=== PATIENT | female | born 2000 | race African-American/Black ===

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

== ENCOUNTER 2021-09-13 20:04 | Inpatient (IN) | payer MEDICARE, MEDICAID ==
[2021-09-13 21:35] LABS: #Lymphocytes 2.6 thou/uL (1.20-3.40); #Monocytes 0.5 thou/uL (0.11-0.59); #Neutrophils 6.7 thou/uL (1.40-6.50); %Basophils 0.2 % (0.0-1.0); %Eosinophils 0.2 % (0.0-10.0); %Lymphocytes 26.7 % (21.0-51.0); %Monocytes 4.7 % (0.0-10.0); %Neutrophils 68.2 % (42.0-75.0); Hemoglobin 7.8 g/dL (12.0-16.0); Mean Corpuscular HGB CONC 32.3 g/dL (32.0-36.0); Mean Corpuscular Hemoglobin 28.8 pg (27.0-31.0); Mean Corpuscular Volume 89.2 fL (78.0-98.0); Mean Platelet Volume 6.9 fL (7.4-10.4); Platelet Count 253 thou/uL (130-400); Red Blood Cell (RBC) Count 2.72 mill/uL (4.20-5.40); White Blood Cell (WBC) Count 9.8 thou/uL (4.8-10.8)
[2021-09-13 21:36] LABS: Bacteria/HPF 1+ HPF (None Seen); Bilirubin Negative (Negative); Blood, Urine 3+ (Negative); Clarity Clear (Clear); Glucose, Urine (Dipstick) Normal (Negative); Ketone, Urine Negative (Negative); Leukocyte 500 Leu/uL (Negative); Nitrite Negative (Negative); Pregnancy Test - Urine (BHCG) Negative (Negative); Pregu Control Background? CLEAR/WHITE (CLR/WHITE); Pregu Control Bar Appear? YES (CONTROL BAR); Protein, Urine (Dipstick) 20 mg/dL (Neg-Trace); RBC/HPF 0-3 HPF (0-3); Specific Gravity 1.008 (1.002-1.036); Specific Gravity, Urine 1.008 (1.002-1.036); Squamous Epithelial 0-3 HPF (0-3); Urobilinogen Normal mg/dL (Less than 2)
[2021-09-13 21:42] LABS: Amphetamine Not Detected (NotDetected); Barbiturates Screen Not Detected (NotDetected); Benzodiazepine Screen Not Detected (NotDetected); Cocaine Metabolite Screen Not Detected (NotDetected); Methadone Not Detected (NotDetected); Methamphetamine Not Detected (NotDetected); Opiate Screen Not Detected (NotDetected); Oxycodone Screen Not Detected (NotDetected); Phencyclidine (PCP) Not Detected (NotDetected); THC/Cannabinoid Screen Not Detected (NotDetected); Tricyclic Screen Not Detected (NotDetected)
[2021-09-13 22:03] LABS: ALT (SGPT) 19 U/L (8-55); AST (SGOT) 23 U/L (5-34); Albumin 3.9 g/dL (3.5-5.0); Alkaline Phosphatase 90 U/L (40-110); Anion Gap 11 mmol/L (10-20); BUN (Urea Nitrogen) 4 mg/dL (7.0-18.7); Calc. Creatinine Clearance 0 mL/min (70-130); Carbon Dioxide 28 mmol/L (22-29); Chloride 106 mmol/L (98-107); Globulin 2.6 g/dL (2.4-3.5); Glucose 93 mg/dL (70-105); Protein, Total 6.5 g/dL (6.0-8.3); Sodium 142 mmol/L (136-145)
[2021-09-13 22:04] LABS: Acetaminophen Less than 10.0 mcg/mL (10.0-30.0); Alcohol Less than 10 mg/dL (Less than 10); Salicylate Less than 8.0 mg/dL (15.0-30.0)
[2021-09-13 22:21] LABS: Potassium 2.5 mmol/L (3.5-5.1)
[2021-09-13] MEDS ORDERED: Calcium Carbonate 500 MG ChewTAB PO PRN (23:18)
[2021-09-13] MEDS ORDERED: Ondansetron PF 4 MG/2 ML Vial IVP PRN (23:18)
[2021-09-13 23:21] VITALS: BMI 27.8
[2021-09-13] MEDS ORDERED: Potassium Chloride 20 MEQ TAB PO SCH (23:30)
[2021-09-14] MEDS ORDERED: Potassium Chloride 20 MEQ TAB PO SCH (04:00)
[2021-09-14 05:47] LABS: #Eosinphils 0.1 thou/uL (0.0-0.7); #Lymphocytes 2.9 thou/uL (1.20-3.40); #Monocytes 0.5 thou/uL (0.11-0.59); #Neutrophils 4.7 thou/uL (1.40-6.50); %Basophils 0.3 % (0.0-1.0); %Eosinophils 1.1 % (0.0-10.0); %Lymphocytes 35.3 % (21.0-51.0); %Monocytes 6.1 % (0.0-10.0); %Neutrophils 57.2 % (42.0-75.0); Hemoglobin 8.5 g/dL (12.0-16.0); Mean Corpuscular HGB CONC 32.9 g/dL (32.0-36.0); Mean Corpuscular Volume 91.4 fL (78.0-98.0); Mean Platelet Volume 6.7 fL (7.4-10.4); Platelet Count 228 thou/uL (130-400); RBC Distribution Width 13.9 % (11.5-14.5); Red Blood Cell (RBC) Count 2.83 mill/uL (4.20-5.40); White Blood Cell (WBC) Count 8.2 thou/uL (4.8-10.8)
[2021-09-14 06:08] LABS: Anion Gap 10 mmol/L (10-20); BUN (Urea Nitrogen) Less than 4 mg/dL (7.0-18.7); Calc. Creatinine Clearance 212 mL/min (70-130); Calcium 8.8 mg/dL (7.8-10.44); Carbon Dioxide 26 mmol/L (22-29); Chloride 109 mmol/L (98-107); Glucose 107 mg/dL (70-105); Sodium 142 mmol/L (136-145)
[2021-09-14 06:32] LABS: Potassium 2.7 mmol/L (3.5-5.1)
[2021-09-14] MEDS ORDERED: Electrolyte Replacement Protocol FS PRN (06:53)
[2021-09-14] MEDS ORDERED: Artificial Tear Sol 15 ML BOT EA EYE PRN (07:34)
[2021-09-14] MEDS ORDERED: GUAIFENESIN SF SOLN 200 MG/10 ML UDCUP PO PRN (07:34)
[2021-09-14] MEDS ORDERED: Zolpidem Tartrate 5 MG TAB PO PRN (07:34)
[2021-09-14] MEDS ORDERED: Cepastat Lozenges 1 LOZ PO PRN (07:34)
[2021-09-14] MEDS ORDERED: Senokot S 8.6-50 MG TAB PO PRN (07:34)
[2021-09-14] MEDS ORDERED: Moisturizing Cream (Eucerin) 113 GM JAR TOP PRN (07:34)
[2021-09-14] MEDS ORDERED: hydrALAZINE 20 MG/ML VIAL SLOW IVP PRN (07:34)
[2021-09-14] MEDS ORDERED: Loratadine 10 MG TAB PO PRN (07:34)
[2021-09-14] MEDS ORDERED: Loperamide HCl 2 MG CAP PO PRN (07:34)
[2021-09-14 09:41] LABS: Iron 28 ug/dL (50-170); Iron Binding Capacity, Total 268 mcg/dL (265-497); Magnesium 2.1 mg/dL (1.6-2.6); Phosphorus 3.4 mg/dL (2.3-4.7)
[2021-09-14 10:05] LABS: Ferritin 16.1 ng/mL (10-291)
[2021-09-14] MEDS: Acetaminophen 325 MG TAB PO PRN ×2 (14:04→21:24)
[2021-09-15] MEDS: HYDROcodone/Acetaminophen 5/325 mg Tablet PO PRN ×3 (02:58→20:54)
[2021-09-15] MEDS: Ondansetron ODT 4 MG TAB PO PRN (03:00)
[2021-09-15 06:39] LABS: Hemoglobin 8.6 g/dL (12.0-16.0); Mean Corpuscular HGB CONC 32.4 g/dL (32.0-36.0); Mean Corpuscular Hemoglobin 29.9 pg (27.0-31.0); Mean Corpuscular Volume 92.1 fL (78.0-98.0); Mean Platelet Volume 6.7 fL (7.4-10.4); Platelet Count 246 thou/uL (130-400); RBC Distribution Width 13.9 % (11.5-14.5); Red Blood Cell (RBC) Count 2.89 mill/uL (4.20-5.40); White Blood Cell (WBC) Count 7.4 thou/uL (4.8-10.8)
[2021-09-15 06:45] LABS: Anion Gap 10 mmol/L (10-20); BUN (Urea Nitrogen) Less than 4 mg/dL (7.0-18.7); Calc. Creatinine Clearance 209 mL/min (70-130); Calcium 9.1 mg/dL (7.8-10.44); Carbon Dioxide 26 mmol/L (22-29); Chloride 109 mmol/L (98-107); Glucose 95 mg/dL (70-105); Magnesium 2.1 mg/dL (1.6-2.6); Phosphorus 3.7 mg/dL (2.3-4.7); Potassium 3.2 mmol/L (3.5-5.1); Sodium 142 mmol/L (136-145)
[2021-09-15 07:43] LABS: Band 1 % (5-11); Eosinophils 4 % (0-10); Lymphocytes 46 % (21-51); MDiff Complete? YES; Monocytes 5 % (0-10); Neutrophil 42 % (42-75); Platelet Morphology Comment Appears Adequate; Polychromasia SLIGHT = 2-3 cells (100X) (0-2/hpf); Reactive Lymphocytes 1 % (0-10)
[2021-09-15] MEDS ORDERED: Potassium Chloride 20 MEQ TAB PO SCH (08:15)
[2021-09-15] MEDS: Nitrofurantoin Monohyd/M-Cryst 100 MG CAP PO SCH ×2 (08:21→20:55)
[2021-09-15] MEDS: Ferrous Sulfate 325 MG TAB PO SCH (16:05)
[2021-09-16] MEDS: Ondansetron ODT 4 MG TAB PO PRN (01:46)
[2021-09-16] MEDS: Ferrous Sulfate 325 MG TAB PO SCH (09:23)
[2021-09-16] MEDS: Nitrofurantoin Monohyd/M-Cryst 100 MG CAP PO SCH (09:23)
[2021-09-16 11:50] VITALS: TEMP 98.1
[2021-09-16 16:36] VITALS: BP 166/76
== END 2021-09-16 16:40 | DRG 812 ==
LOC: ERS 20:04 → T4-B 22:39 → OBSVTOIN 09-15 11:28
PROVIDERS: ADMIT Internal Medicine; ATTEND Internal Medicine
PROC: 30233N1 Transfusion of Nonautologous Red Blood Cells into Peripheral Vein, Percutaneous Approach (ICD-10-PCS; principal; 2021-09-14)
DX: D50.0 Iron deficiency anemia secondary to blood loss (chronic) (principal); R45.851 Suicidal ideations; N39.0 Urinary tract infection, site not specified; Z20.822 Contact with and (suspected) exposure to COVID-19; E87.6 Hypokalemia; F99 Mental disorder, not otherwise specified; Z90.49 Acquired absence of other specified parts of digestive tract; Z90.89 Acquired absence of other organs
CPT/HCPCS: 36415; 36430; 80048; 80053; 80306; 80307; 81003; 81015; 81025; 82607; 82728; 82746; 83540; 83550; 83735; 84100; 84443; 85025; 86850; 86900; 86901; G0378; P9016; Q0162; U0003; U0005

== ENCOUNTER 2022-12-12 14:58 | Emergency (ER) | payer MEDICARE, MEDICAID ==
[2022-12-12] MEDS ORDERED: Boostrix 0.5 ML (Tdap) VIAL (>/=7 yrs of age) ONE (15:54)
[2022-12-12 16:40] LABS: HBSAB Concentration Less than 8.00 mIU/mL; HIV (1/2) Antibody/Antigen Non-Reactive (NonReactive); HIV 1/2 INDEX 0.18 S/CO (<1.00); Hep B Surf AB Non-Reactive (NonReactive); Hep C IgG Ab Non-Reactive S/CO (NonReactive); Hep C Index 0.14 S/CO (0-0.79)
== END 2022-12-12 16:00 | disposition home or self-care (01) ==
LOC: ERS 14:58
DX: S51.851A Open bite of right forearm, initial encounter (principal); I10 Essential (primary) hypertension; K21.9 Gastro-esophageal reflux disease without esophagitis; Y04.1XXA Assault by human bite, initial encounter
CPT/HCPCS: 36415; 90471; 90715

== ENCOUNTER 2023-09-11 16:11 | Emergency (ER) | payer MEDICARE, MEDICAID ==
[2023-09-11] MEDS ORDERED: Ibuprofen 800 MG TAB ONE (16:24)
[2023-09-11 17:08] LABS: Influenza A by NAA Not Detected (NotDetected); Influenza B by NAA Not Detected (NotDetected); SARS-CoV-2 NAA Rapid Test Not Detected (NotDetected)
== END 2023-09-11 16:58 | disposition home or self-care (01) ==
LOC: ERS 16:11
DX: J02.9 Acute pharyngitis, unspecified (principal); I10 Essential (primary) hypertension
CPT/HCPCS: 0240U; 87081; 87430; 99283

== ENCOUNTER 2023-12-23 17:29 | Emergency (ER) | payer OTHER ==
[2023-12-23] MEDS ORDERED: Bacitracin 1 PK ONE (18:12)
== END 2023-12-23 18:16 | disposition home or self-care (01) ==
LOC: ERS 17:29
DX: S01.01XA Laceration without foreign body of scalp, initial encounter (principal); I10 Essential (primary) hypertension; Y00.XXXA Assault by blunt object, initial encounter; Y93.89 Activity, other specified; Y92.099 Unspecified place in other non-institutional residence as the place of occurrence of the external cause
CPT/HCPCS: 99283

== ENCOUNTER 2024-01-04 15:57 | Emergency (ER) | payer OTHER, MEDICAID | END 2024-01-04 16:40 | disposition home or self-care (01) | LOC: ERS 15:57 | DX: S01.01XD Laceration without foreign body of scalp, subsequent encounter (principal); Z48.02 Encounter for removal of sutures; I10 Essential (primary) hypertension; Y04.8XXD Assault by other bodily force, subsequent encounter ==